=== PATIENT | male | born 1975 ===

== ENCOUNTER 2016-07-12 09:14 | Emergency (ER) | payer OTHER ==
[2016-07-12 09:41] VITALS: RESP 18; TEMP 98; O2SAT 97
--- NOTE | 2016-07-12 10:27 | UCPHY ---
H & P Patient Type: Established Chief Complaint Nursing Narrative: here for repeat episode of am dizzyness/ shaking/visual disturbances- last episode several months ago- has had full labs drawn with cont work up @ PCP last week - he has been having trouble empting his bladder over the last few months Time Seen by Provider: 07/12/16 10:08 Source: Patient - Medical/Surgical History Hx Asthma: No Hx Chronic Respiratory Disease: No Hx Diabetes: No Hx Cardiac Disease: No Hx Renal Disease: No Hx Cirrhosis: No Hx Alcoholism: No Hx HIV/AIDS: No Hx Splenectomy or Spleen Trauma: No Other PMH: Fatty liver, choly, right shoulder surgery x 2, GERD, INVERTED T- WAVES, ciatica - Social History Smoking Status: Never smoked Constitutional: Initial Vital Signs Temperature (C) 36.6 C 07/12/16 09:37 Heart Rate 85 07/12/16 09:37 Respiratory Rate 18 07/12/16 09:37 Blood Pressure 177/85 H 07/12/16 09:37 O2 Sat (%) 97 07/12/16 09:37 O2 Delivery Mode Room Air Allergies/Adverse Reactions: Penicillins Allergy (Unknown, Verified 10/22/09 18:38) amoxicillin trihydrate [From Augmentin] Allergy (Verified 07/12/16 09:37) potassium clavulanate [From Augmentin] Allergy (Verified 07/12/16 09:37) Home Medications: Medication Instructions Recorded NK [No Known Home Meds] 04/14/15 Departure - Departure Disposition: Home, Routine, Self-Care Clinical Impression: Dizziness Condition: Good Instructions: Dizziness (ED) Additional Instructions: Rest, drink plenty of fluids, follow up with her primary care physician. Referrals: Dave Browne MD [Primary Care Provider] - As per Instructions - PQRS PQRS Measurement: na
[2016-07-12 11:15] VITALS: BP 140/111; PULSE 81
== END 2016-07-12 11:37 | disposition home or self-care (01) ==
LOC: CED 09:14
DX: R42 Dizziness and giddiness (principal)
CPT/HCPCS: G0463-PO

== ENCOUNTER → 2016-07-21 | Outpatient (CLI) | payer OTHER | LOC: CIMAGING 10:49 | PROVIDERS: ATTEND Family Medicine | DX: K76.0 Fatty (change of) liver, not elsewhere classified (principal); K86.89 Other specified diseases of pancreas; R16.0 Hepatomegaly, not elsewhere classified; Z90.49 Acquired absence of other specified parts of digestive tract | CPT/HCPCS: 76700-PO ==

== ENCOUNTER 2016-08-02 10:01 | Emergency (ER) | payer OTHER ==
--- NOTE | 2016-08-02 11:35 | UCPHY ---
H & P Time Seen by Provider: 08/02/16 11:06 Patient Type: Established HPI/ROS: This patient with a history of 1 prior perianal abscess required drainage reports a similar lump over the past 2 weeks that drained over the past 48 hours. Still has mild discomfort to the area was not sure if he needs a procedure. He reports that the current intensity is only 1 or 2/10 discomfort. He says that drained multi colored fluid over the past 48 hours and is no longer draining this morning. ROS: No fevers. No other constitutional symptoms. No other skin complaints. No nausea or vomiting. 5 point ROS is otherwise negative. Smoking Status: Never smoked Physical Exam: Physical Exam Vital signs are normal. General: No acute distress HEENT: Atraumatic. Eyes: Pupils equal and react to light. Extraocular motions are intact. Lungs: No respiratory distress. Cardiac: Brisk capillary refill is intact throughout. Skin: No rash or pallor. Patient has evidence of a recently drained perianal cyst at 7 o'clock in lithotomy position with no active drainage in no fluctuance. There is minimal erythema surrounding it. The spontaneous wound that evidently drained this is approximately 8 mm in length. Neuro: Alert and oriented x3 with no sensorimotor deficits. Allergies/Adverse Reactions: Penicillins Allergy (Unknown, Verified 10/22/09 18:38) amoxicillin trihydrate [From Augmentin] Allergy (Verified 07/12/16 09:37) potassium clavulanate [From Augmentin] Allergy (Verified 07/12/16 09:37) Home Medications: Medication Instructions Recorded Sulfamethox/Tmp 800/160 mg 1 tab PO BID #10 tab 08/02/16 [Bactrim Ds] MDM/Departure - MDM ED Course/Re-evaluation: Discussion: Apparent anal cyst that drained spontaneously. Will cover with antibiotics given mild erythema that persists. - Depart Disposition: Home, Routine, Self-Care Clinical Impression: Perianal cyst Condition: Good Instructions: Cellulitis (ED) Additional Instructions: Diagnosis: Perianal cyst-self drained Plan: Warm baths each day and gently massage the area Clean the area after bowel movements Bactrim antibiotic Ibuprofen Tylenol for discomfort if needed Return for any significant worsening despite the treatment plan. Prescriptions: Sulfamethox/Tmp 800/160 mg [Bactrim Ds] 1 tab PO BID #10 tab Referrals: Dave Browne MD [Primary Care Provider] - As per Instructions - PQRS PQRS Measurement: NA
== END 2016-08-02 11:40 | disposition home or self-care (01) ==
LOC: CED 10:01
DX: K61.0 Anal abscess (principal)
CPT/HCPCS: 99214-PO; G0463-PO

== ENCOUNTER 2017-09-13 18:12 | Emergency (ER) | payer OTHER ==
[2017-09-13] MEDS ORDERED: chlordiazePOXIDE 25 MG CAP PO ONE (18:29)
--- NOTE | 2017-09-13 18:32 | EDPHY ---
H & P Time Seen by Provider: 09/13/17 18:25 HPI/ROS: CHIEF COMPLAINT: Shaky HISTORY OF PRESENT ILLNESS: Patient is a 42-year-old man who comes to the emergency department complaining of feeling shaky and anxious. He states that he drink heavily over the weekend and that he drinks almost daily but more on the weekends. He stop drinking last night. He thinks that this is alcohol related as well as stress-induced which is why he has been drinking more. He does not have any history of liver disease. He has not had a fever. No nausea vomiting. REVIEW OF SYSTEMS: Constitutional: denies: chills, fever, recent illness, recent injury EENTM: denies: blurred vision, double vision, nose congestion Respiratory: denies: cough, shortness of breath Cardiac: denies: chest pain, irregular heart rate, lightheadedness, palpitations Gastrointestinal/Abdominal: denies: abdominal pain, diarrhea, nausea, vomiting, blood streaked stools Genitourinary: denies: dysuria, frequency, hematuria, pain Musculoskeletal: denies: joint pain, muscle pain Skin: denies: lesions, rash, jaundice, bruising Neurological: Shaky, denies: headache, numbness, paresthesia, tingling, dizziness, weakness Hematologic/Lymphatic: denies: blood clots, easy bleeding, easy bruising Immunologic/allergic: denies: HIV/AIDS, transplant EXAM: GENERAL: Well-appearing, well-nourished and in no acute distress. HEAD: Atraumatic, normocephalic. EYES: Pupils equal round and reactive to light, extraocular movements intact, sclera anicteric, conjunctiva are normal. ENT: TMs normal, nares patent, oropharynx clear without exudates. Moist mucous membranes. NECK: Normal range of motion, supple without lymphadenopathy or JVD. LUNGS: Breath sounds clear to auscultation bilaterally and equal. No wheezes rales or rhonchi. HEART: Regular rate and rhythm without murmurs, rubs or gallops. Not tachycardic ABDOMEN: Soft, nontender, normoactive bowel sounds. No guarding, no rebound. No masses appreciated. BACK: No CVA tenderness, no spinal tenderness, step-offs or deformities EXTREMITIES: Slightly shaky if hands held straight forward, Normal range of motion, no pitting or edema. No clubbing or cyanosis. NEUROLOGICAL: Cranial nerves II through XII grossly intact. Normal speech, normal gait. 5/5 strength, normal movement in all extremities, normal sensation PSYCH: Anxious SKIN: Warm, dry, normal turgor, no visible rashes or lesions. Source: Patient Exam Limitations: No limitations - Medical/Surgical History Hx Asthma: No Hx Chronic Respiratory Disease: No Hx Diabetes: No Hx Cardiac Disease: No Hx Renal Disease: No Hx Cirrhosis: No Hx Alcoholism: No Hx HIV/AIDS: No Hx Splenectomy or Spleen Trauma: No Other PMH: Fatty liver, choly, right shoulder surgery x 2, GERD, INVERTED T- WAVES, sciatica - Family History Significant Family History: No pertinent family hx - Social History Smoking Status: Never smoked Alcohol Use: Heavy Drug Use: None Constitutional: Initial Vital Signs Temperature (C) 37.3 C 09/13/17 18:23 Heart Rate 90 09/13/17 18:23 Respiratory Rate 18 09/13/17 18:23 Blood Pressure 153/110 H 09/13/17 18:23 O2 Sat (%) 92 09/13/17 18:23 O2 Delivery Mode Room Air Allergies/Adverse Reactions: Penicillins Allergy (Unknown, Verified 09/13/17 18:32) amoxicillin trihydrate [From Augmentin] Allergy (Verified 09/13/17 18:32) potassium clavulanate [From Augmentin] Allergy (Verified 09/13/17 18:32) Home Medications: Medication Instructions Recorded NK [No Known Home Meds] 09/13/17 Medical Decision Making ED Course/Re-evaluation: 7:50 p.m. the patient is feeling much better. He is not tachycardic or tremulous. He does not wish to go to the arc. His states that she will help him at home. We will discharge him with a Librium pack which I have instructed them how to taper. They are happy with this and declines further workup or testing at this time. We discussed indications for returning Differential Diagnosis: Partial list of the Differential diagnosis considered include but were not limited to; withdrawal, anxiety, and although unlikely based on the history and physical exam, I also considered infection, encephalopathy, asterixis. I discussed these differential diagnoses and the plan with the patient as well as the usual and expected course. The patient understands that the diagnosis is provisional and that in medicine we are not always correct and that further workup is often warranted. Usual and customary warnings were given. All of the patient's questions were answered. The patient was instructed to return to the emergency department should the symptoms at all worsen or return, otherwise to followup with the physician as we discussed. - Data Points Medications Given: Discontinued Medications Chlordiazepoxide (Librium 25 Mg Prepack#6) 1 btl TAKEHOME EDNOW ONE Stop: 09/13/17 19:54 Last Admin: 09/13/17 20:23 Dose: 1 btl Chlordiazepoxide HCl (Librium) 50 mg PO EDNOW ONE Stop: 09/13/17 18:30 Last Admin: 09/13/17 18:44 Dose: 50 mg Departure - Departure Disposition: Home, Routine, Self-Care Clinical Impression: Alcohol withdrawal Qualifiers: Complication of substance-induced condition: uncomplicated Qualified Code(s): F10.230 - Alcohol dependence with withdrawal, uncomplicated Condition: Fair Instructions: Chlordiazepoxide (By mouth), Alcohol Withdrawal (ED) Referrals: NONE *PRIMARY CARE P,. [Primary Care Provider] - As per Instructions Missy Guerrero MD [Medical Doctor] - As per Instructions
[2017-09-13] MEDS ORDERED: CHLORDIAZEPOXIDE 25MG PREPK#6 BTL TAKEHOME ONE (19:53)
[2017-09-13 20:11] VITALS: BP 146/98
== END 2017-09-13 20:27 | disposition home or self-care (01) ==
LOC: CED 18:12
DX: F10.230 Alcohol dependence with withdrawal, uncomplicated (principal)

== ENCOUNTER 2017-11-11 09:11 | Emergency (ER) | payer OTHER ==
[2017-11-11] MEDS ORDERED: NS 1,000 ML IV ONE (09:44)
--- NOTE | 2017-11-11 09:48 | EDPHY ---
H & P Time Seen by Provider: 11/11/17 09:24 HPI/ROS: CHIEF COMPLAINT: Lower abdominal pain HISTORY OF PRESENT ILLNESS: Patient states a week ago, last Tuesday, had a gradual onset of lower abdominal pain. States it felt like constipation but he was not constipated and has been having normal BMs. He did have some diarrhea the week before but that resolved. He said that he was"not feeling good all weekend". He denies vomiting but has had some nausea related to this pain. He has had no dysuria. There is some radiation to the groin bilaterally but no specific testicular pain. No pain when passing stool. No blood per rectum or in stool. Coughing or laughing does make the pain worse. He was able to play golf last Tuesday without problems. He also denies fevers or chills. No chest pain or shortness of breath. No recent travel. No trauma. REVIEW OF SYSTEMS: Constitutional: No fever, no chills. Eyes: No discharge. ENT: No sore throat. Cardiovascular: No chest pain, no palpitations. Respiratory: No cough, no shortness of breath. Gastrointestinal: Per HPI Genitourinary: No dysuria. Musculoskeletal: No back pain. Skin: No rashes. Neurological: No headache. General Appearance: Alert, no distress. Eyes: Pupils equal and round no pallor or injection. ENT, Mouth: Mucous membranes moist. Respiratory: There are no retractions, lungs are clear to auscultation. Cardiovascular: Regular rate and rhythm. Gastrointestinal: Abdomen soft with tenderness to palpation and involuntary guarding in the left lower quadrant and suprapubic region. Bowel sounds normal. Genitourinary: Normal testicular exam. Neurological: Awake and alert no focal neurologic deficits. Skin: Warm and dry, no rashes. Musculoskeletal: Neck is supple nontender. Extremities are symmetrical, full range of motion, no edema. Psychiatric: Patient is oriented X 3, there is no agitation. Medical/surgical history: Surgeries include right shoulder, back, gallbladder, trach as baby. No medications currently. Social history: Does smoke occasionally. Daily drinker. No drugs. Smoking Status: Current some day smoker Constitutional: Initial Vital Signs Temperature (C) 36.9 C 11/11/17 09:22 Heart Rate 104 H 11/11/17 09:22 Respiratory Rate 16 06/29/18 09:22 Blood Pressure 126/94 H 11/11/17 09:22 O2 Sat (%) 92 11/11/17 09:22 O2 Delivery Mode Room Air Allergies/Adverse Reactions: Penicillins Allergy (Unknown, Verified 11/11/17 09:25) amoxicillin trihydrate [From Augmentin] Allergy (Verified 11/11/17 09:25) potassium clavulanate [From Augmentin] Allergy (Verified 11/11/17 09:25) Home Medications: Medication Instructions Recorded Metronidazole 500 mg PO BID 12 Days #24 tablet 11/11/17 levOFLOXACIN [Levofloxacin] 750 mg PO DAILY #12 tablet 11/11/17 Medical Decision Making - Diagnostics Imaging Results: Imaging Impressions Abdomen CT 11/11/17 09:44 Impression: 1. Acute sigmoid colon diverticulitis. 2. Hepatic steatosis. 3. Status post cholecystectomy. Findings were discussed with Lela Keen MD at 11:16, on 11/11/2017. Imaging: Discussed imaging studies w/ rn call center Radiologist ED Course/Re-evaluation: Re-evaluation shows patient stable, reviewed CT findings, treatment plan, return precautions in detail. Differential Diagnosis: Differential diagnosis includes but is not limited to diverticulitis, appendicitis, prostatitis, UTI, other acute abdominal cause. After evaluation patient with diverticulitis without evidence of perforation or abscess on CT. Patient has been slightly nauseated through his illness but no vomiting and will likely tolerate oral antibiotics as outpatient. Discussed importance of rest, hydration, completion of medication course. Reviewed return precautions in detail. Stable for discharge. - Data Points Laboratory Results: Laboratory Results 11/11/17 09:50 11/11/17 11/11/17 10:00 09:50 WBC 13.33 10^3/uL H 10^3/uL (3.80-9.50) RBC 5.69 10^6/uL 10^6/uL (4.40-6.38) Hgb 18.9 g/dL H g/dL (13.7-17.5) Hct 53.3 % H % (40.0-51.0) MCV 93.7 fL fL (81.5-99.8) MCH 33.2 pg pg (27.9-34.1) MCHC 35.5 g/dL g/dL (32.4-36.7) RDW 13.8 % % (11.5-15.2) Plt Count 245 10^3/uL 10^3/uL (150-400) MPV 9.6 fL fL (8.7-11.7) Neut % (Auto) 75.0 % H % (39.3-74.2) Lymph % (Auto) 15.8 % % (15.0-45.0) Ector % (Auto) 7.2 % % (4.5-13.0) Eos % (Auto) 0.8 % % (0.6-7.6) Baso % (Auto) 0.7 % % (0.3-1.7) Nucleat RBC Rel Count 0.0 % % (0.0-0.2) Absolute Neuts (auto) 10.00 10^3/uL H 10^3/uL (1.70-6.50) Absolute Lymphs (auto) 2.11 10^3/uL 10^3/uL (1.00-3.00) Absolute Monos (auto) 0.96 10^3/uL H 10^3/uL (0.30-0.80) Absolute Eos (auto) 0.11 10^3/uL 10^3/uL (0.03-0.40) Absolute Basos (auto) 0.09 10^3/uL 10^3/uL (0.02-0.10) Absolute Nucleated RBC 0.00 10^3/uL 10^3/uL (0-0.01) Immature Gran % 0.5 % % (0.0-1.1) Immature Gran # 0.06 10^3/uL 10^3/uL (0.00-0.10) POC Sodium 139 mEq/L mEq/L (135-145) POC Potassium 3.6 mEq/L mEq/L (3.3-5.0) POC Chloride 100.0 mEq/L mEq/L (97-110) POC Total CO2 27 mEq/L mEq/L (22-31) POC BUN 6 mg/dL L mg/dL (7-23) POC Creatinine 0.7 mg/dL mg/dL (0.7-1.3) POC Glucose 107 mg/dL H mg/dL (70-100) POC Calcium 9.2 mg/dL mg/dL (8.5-10.4) Medications Given: Discontinued Medications Sodium Chloride (Ns) 1,000 mls @ 0 mls/hr IV EDNOW ONE; Wide Open PRN Reason: Protocol Stop: 11/11/17 09:45 Last Admin: 11/11/17 10:00 Dose: 1,000 mls Levofloxacin (Levaquin) 750 mg PO EDNOW ONE PRN Reason: Protocol Stop: 11/11/17 11:19 Last Admin: 11/11/17 11:28 Dose: 750 mg Metronidazole (Flagyl) 500 mg PO EDNOW ONE PRN Reason: Protocol Stop: 11/11/17 11:19 Last Admin: 11/11/17 11:29 Dose: 500 mg Point of Care Test Results: Chemistry 11/11/17 10:00 POC Sodium 139 mEq/L mEq/L (135-145) POC Potassium 3.6 mEq/L mEq/L (3.3-5.0) POC Chloride 100.0 mEq/L mEq/L (97-110) POC Total CO2 27 mEq/L mEq/L (22-31) POC BUN 6 mg/dL L mg/dL (7-23) POC Creatinine 0.7 mg/dL mg/dL (0.7-1.3) POC Glucose 107 mg/dL H mg/dL (70-100) POC Calcium 9.2 mg/dL mg/dL (8.5-10.4) Urine Dip Collection Date 11/11/17 Collection Time 11:09 Specific Jen[place] (1.002-1.030) 1.005 PH (5.0-7.5) 5.5 Leukocytes (Negative) Negative Nitrites (Negative) Negative Protein (Negative) 2+ Glucose (Negative) Negative Ketones (Negative) Negative Urobilnogen (0.2-1.0 EU) 0.2 Bilirubin (Negative) Negative Blood (Negative) Negative Departure - Departure Clinical Impression: Diverticulitis large intestine w/o perforation or abscess w/bleeding Condition: Good Instructions: Diverticulitis (ED), Diverticulitis Diet (ED) Additional Instructions: Rest over the next few days and take medications as discussed. The levofloxacin can lead to tendon injury so avoid strenuous activity while on this medication. Review diet recommendations for diverticulitis. Stay well- hydrated. Return to the emergency department if abdominal pain gets significantly worse or if you have vomiting, fever, blood in stool or other concerning new symptoms. Referrals: NONE *PRIMARY CARE P,. [Primary Care Provider] - As per Instructions Prescriptions: levOFLOXACIN [Levofloxacin] 750 mg PO DAILY #12 tablet Metronidazole 500 mg PO BID 12 Days #24 tablet
[2017-11-11] MEDS ORDERED: IOPAMIDOL (ISOVUE-300) 100 ML BTL ONE (10:24)
[2017-11-11 11:09] LABS: PLATELET COUNT 245 10^3/uL (150-400)
[2017-11-11 11:17] VITALS: BP 139/96
[2017-11-11] MEDS ORDERED: metroNIDAZOLE 500 MG TAB PO ONE (11:18)
== END 2017-11-11 11:51 | disposition home or self-care (01) ==
LOC: CED 09:11
DX: K57.33 Diverticulitis of large intestine without perforation or abscess with bleeding (principal); F17.200 Nicotine dependence, unspecified, uncomplicated; E86.9 Volume depletion, unspecified
CPT/HCPCS: 74177-PO; 80048-PO; Q9967

== ENCOUNTER → 2018-04-24 | Outpatient (CLI) | payer OTHER | LOC: FIMAGING 11:37 | PROVIDERS: ATTEND Family Medicine | DX: M79.601 Pain in right arm (principal) ==